=== PATIENT | male | born 1955 | race Caucasian/White ===

== ENCOUNTER 2019-05-07 02:02 | Inpatient (IN) ==
[2019-05-07] MEDS ORDERED: Naloxone 0.4 MG/ML INJ IVP PRN (05:14)
[2019-05-07 05:42] LABS: Basophils % 0.1 %; Eosinophils % 0.1 %; Hematocrit 41.5 % (37.5-50.1); Hemoglobin 13.8 g/dL (12.9-16.9); Immature Granulocytes % 0.8 % (0-4); Lymphocytes # 0.7 K/mcL (0.6-4.6); Lymphocytes % 5.3 %; Mean Corpuscular HGB Conc 33.3 g/dL (31.6-35.5); Mean Corpuscular Hemoglobin 26.4 pg (28.0-33.3); Mean Corpuscular Volume 79.5 fL (83.0-100.0); Mean Platelet Volume 9.6 fL (9.4-12.4); Monocytes # 0.1 K/mcL (0.0-1.3); Monocytes % 1.1 %; Neutrophils # 11.5 K/mcL (1.6-8.9); Platelet Count 239 K/mcL (140-400); Red Blood Count 5.22 M/mcL (4.19-5.50); Red Cell Distribution Width 14.7 % (11.5-14.5); Segmented Neutrophils % 92.6 %; White Blood Count 12.4 K/mcL (4.3-11.1)
[2019-05-07] MEDS ORDERED: *HR* Heparin 5,000 UNIT/ML VIAL SQ SCH (06:00)
[2019-05-07 06:05] LABS: BUN/Creatinine Ratio 22 (6-26); Blood Urea Nitrogen 22 mg/dL (8-23); Calcium 8.8 mg/dL (8.6-10.3); Carbon Dioxide 24 mEq/L (23-29); Chloride 101 mEq/L (98-107); Glucose 165 mg/dL (70-105); Magnesium 1.7 mg/dL (1.6-2.6); Osmolality,Calculated 291 (280-300); Phosphorous 2.6 mg/dL (2.7-4.5); Potassium 4.3 mEq/L (3.5-5.1); Sodium 137 mEq/L (136-145); eGFR For African Americans > 60 (> 60); eGFR For Non-African Americans > 60 (> 60)
[2019-05-07 06:07] LABS: Troponin I 0.54 ng/mL (< 0.04)
[2019-05-07] MEDS ORDERED: *HR* Heparin 5,000 UNIT/ML VIAL IVP ONE (06:08)
[2019-05-07] MEDS ORDERED: *HR* Heparin 5,000 UNIT/ML VIAL IVP PRN ×2 (06:08)
[2019-05-07] MEDS ORDERED: Furosemide 40 MG/4 ML VIAL IVP ONE (06:14)
[2019-05-07 06:28] LABS: ABG Base Excess 3 mEq/L (-2 to 3); ABG HCO3 27 mEq/L (21-27); ABG Oxygen Saturation 95 % (95-98); ABG PCO2 42 mmHg (35-45); ABG PH 7.43 pH Units (7.32-7.45); ABG PO2 77 mmHg (85-104); ABG TCO2 29 mEq/L (20-26); Blood Gas Modality NIV
[2019-05-07 06:41] LABS: Hematocrit 41.1 % (37.5-50.1); Hemoglobin 13.6 g/dL (12.9-16.9); Mean Corpuscular HGB Conc 33.1 g/dL (31.6-35.5); Mean Corpuscular Hemoglobin 26.9 pg (28.0-33.3); Mean Corpuscular Volume 81.4 fL (83.0-100.0); Mean Platelet Volume 9.4 fL (9.4-12.4); Platelet Count 227 K/mcL (140-400); Red Blood Count 5.05 M/mcL (4.19-5.50); Red Cell Distribution Width 14.7 % (11.5-14.5); White Blood Count 12.7 K/mcL (4.3-11.1)
[2019-05-07 06:47] LABS: Prothrombin Time 10.8 Seconds (9.4-12.1)
[2019-05-07] MEDS: amLODIPine 5 MG TABLET PO SCH (08:35)
[2019-05-07] MEDS: Heparin 25,000 UNIT/250 ML D5W 25,000 UNIT/250 ML IV.SOLN IVC SCH (08:36)
[2019-05-07] MEDS ORDERED: Aspirin 81 MG TAB.CHEW PO SCH (09:00)
[2019-05-07] MEDS ORDERED: Nitroglycerin 0.4 MG TAB.SUBL SL PRN (11:45)
[2019-05-07] MEDS: *HR* Buprenorphine HCl 8 MG TAB.SUBL SL SCH ×2 (16:16→20:37)
[2019-05-07] MEDS ORDERED: Furosemide 40 MG/4 ML VIAL ONE (18:38)
[2019-05-07] MEDS: Furosemide 40 MG/4 ML VIAL IVP SCH (18:39)
[2019-05-07] MEDS ORDERED: Aspirin Enteric Coated 81 MG Tablet PO SCH (18:45)
[2019-05-07] MEDS ORDERED: Nitroglycerin 1 INCH/GM PACKET TP ONE (20:49)
[2019-05-08] MEDS: Heparin 25,000 UNIT/250 ML D5W 25,000 UNIT/250 ML IV.SOLN IVC SCH (03:55)
[2019-05-08 04:32] LABS: Albumin 3.7 g/dL (3.5-5.7); Albumin/Globulin Ratio 1.4 (1.1-2.2); Bilirubin,Direct 0.1 mg/dL (0.0-0.2); Bilirubin,Indirect 0.4 mg/dL (0.0-1.0); Bilirubin,Total 0.5 mg/dL (0.3-1.0); Chol/HDL Ratio 3.5 (0-4.9); Globulin 2.7 g/dL (2.4-3.5); Total Protein 6.4 g/dL (6.4-8.9)
[2019-05-08] MEDS: Furosemide 40 MG/4 ML VIAL IVP SCH ×2 (08:14→20:23)
[2019-05-08] MEDS: amLODIPine 5 MG TABLET PO SCH (08:14)
[2019-05-08] MEDS: *HR* Buprenorphine HCl 8 MG TAB.SUBL SL SCH ×2 (08:14→18:23)
[2019-05-08] MEDS: Aspirin Enteric Coated 81 MG Tablet PO SCH (08:16)
[2019-05-08 09:02] LABS: Hematocrit 39.4 % (37.5-50.1); Hemoglobin 13.1 g/dL (12.9-16.9); Mean Corpuscular HGB Conc 33.2 g/dL (31.6-35.5); Mean Corpuscular Hemoglobin 26.8 pg (28.0-33.3); Mean Corpuscular Volume 80.6 fL (83.0-100.0); Mean Platelet Volume 9.5 fL (9.4-12.4); Platelet Count 245 K/mcL (140-400); Red Blood Count 4.89 M/mcL (4.19-5.50); White Blood Count 15.7 K/mcL (4.3-11.1)
[2019-05-08 09:22] LABS: BUN/Creatinine Ratio 33 (6-26); Blood Urea Nitrogen 29 mg/dL (8-23); Calcium 8.7 mg/dL (8.6-10.3); Carbon Dioxide 28 mEq/L (23-29); Chloride 98 mEq/L (98-107); Glucose 167 mg/dL (70-105); Osmolality,Calculated 290 (280-300); Potassium 3.9 mEq/L (3.5-5.1); Sodium 135 mEq/L (136-145); eGFR For African Americans > 60 (> 60); eGFR For Non-African Americans > 60 (> 60)
[2019-05-08] MEDS ORDERED: 0.9 % Sodium Chloride 1,000 ML ONE ×2 (14:48→14:51)
[2019-05-08] MEDS ORDERED: Nitroglycerin 1,000 MCG/10 ML VIAL IV ONE (14:49)
[2019-05-08] MEDS ORDERED: *HR* Heparin 10,000 UNIT/10 ML VIAL ONE (14:49)
[2019-05-08] MEDS ORDERED: Heparin 1,000 UNITS/500 mL 500 ML ONE (14:49)
[2019-05-08] MEDS ORDERED: ISOVUE-370 200 ML INFUS..BTL ONE (14:49)
[2019-05-08] MEDS ORDERED: *HR* Midazolam HCl 2 MG/2 ML VIAL ONE (15:02)
[2019-05-08] MEDS ORDERED: *HR* FentaNYL (PF) 100 MCG/2 ML VIAL ONE (15:02)
[2019-05-08] MEDS ORDERED: Verapamil 5 MG/2 ML VIAL ONE (15:11)
[2019-05-08 18:02] LABS: Basophils % 0.1 %; Hematocrit 37.6 % (37.5-50.1); Hemoglobin 12.6 g/dL (12.9-16.9); Immature Granulocytes % 0.7 % (0-4); Lymphocytes # 2.1 K/mcL (0.6-4.6); Lymphocytes % 14.5 %; Mean Corpuscular HGB Conc 33.5 g/dL (31.6-35.5); Mean Corpuscular Hemoglobin 26.6 pg (28.0-33.3); Mean Corpuscular Volume 79.5 fL (83.0-100.0); Mean Platelet Volume 9.5 fL (9.4-12.4); Monocytes # 0.7 K/mcL (0.0-1.3); Monocytes % 4.7 %; Neutrophils # 11.5 K/mcL (1.6-8.9); Platelet Count 229 K/mcL (140-400); Red Blood Count 4.73 M/mcL (4.19-5.50); Red Cell Distribution Width 15.2 % (11.5-14.5); White Blood Count 14.4 K/mcL (4.3-11.1)
[2019-05-08 18:05] LABS: INR 1.1; Prothrombin Time 12.1 Seconds (9.4-12.1)
[2019-05-08 18:22] LABS: BUN/Creatinine Ratio 30 (6-26); Blood Urea Nitrogen 26 mg/dL (8-23); Calcium 8.3 mg/dL (8.6-10.3); Carbon Dioxide 29 mEq/L (23-29); Chloride 100 mEq/L (98-107); Glucose 99 mg/dL (70-105); Osmolality,Calculated 291 (280-300); Potassium 3.5 mEq/L (3.5-5.1); Sodium 138 mEq/L (136-145); eGFR For African Americans > 60 (> 60); eGFR For Non-African Americans > 60 (> 60)
[2019-05-08 19:30] LABS: Estimated Average Glucose 137 mg/dl
[2019-05-08 20:12] LABS: Bilirubin,Urine Negative (Negative); Blood,Urine Negative (Negative); Clarity,Urine Clear (Clear); Color,Urine Yellow (Yellow); Glucose,Urine (UA) Normal (Normal); Ketones,Urine Negative (Negative); Leukocyte Esterase,Urine Negative (Negative); Nitrite,Urine Negative (Negative); PH,Urine 6.5 pH Units (5.0-8.0); Protein,Urine Negative (Neg-Trace); Specific Gravity,Urine > 1.030 (1.010-1.025); Urobilinogen,Urine Normal (Normal)
[2019-05-08] MEDS: Chlorhexidine Rinse 15 ML MOUTHWASH MM SCH (20:23)
[2019-05-08] MEDS ORDERED: *HR* LORazepam 2 MG/ML VIAL IVP ONE (20:58)
[2019-05-08] MEDS: Nitroglycerin 25 MG/250 ML INFUS..BTL IVC SCH (21:10)
[2019-05-09 04:57] LABS: Basophils % 0.1 %; Eosinophils % 0.2 %; Hematocrit 37.3 % (37.5-50.1); Hemoglobin 12.2 g/dL (12.9-16.9); Immature Granulocytes % 0.4 % (0-4); Lymphocytes # 2.1 K/mcL (0.6-4.6); Lymphocytes % 20.7 %; Mean Corpuscular HGB Conc 32.7 g/dL (31.6-35.5); Mean Corpuscular Hemoglobin 26.4 pg (28.0-33.3); Mean Corpuscular Volume 80.7 fL (83.0-100.0); Mean Platelet Volume 10.3 fL (9.4-12.4); Monocytes # 0.5 K/mcL (0.0-1.3); Monocytes % 5.1 %; Neutrophils # 7.4 K/mcL (1.6-8.9); Platelet Count 194 K/mcL (140-400); Red Blood Count 4.62 M/mcL (4.19-5.50); Red Cell Distribution Width 15.4 % (11.5-14.5); Segmented Neutrophils % 73.5 %; White Blood Count 10.1 K/mcL (4.3-11.1)
[2019-05-09 05:10] LABS: Prothrombin Time 11.7 Seconds (9.4-12.1)
[2019-05-09 05:13] LABS: Activated Partial Thrombo Time 49.5 Seconds (26.0-36.0)
[2019-05-09 05:16] LABS: BUN/Creatinine Ratio 29 (6-26); Blood Urea Nitrogen 27 mg/dL (8-23); Calcium 8.2 mg/dL (8.6-10.3); Carbon Dioxide 32 mEq/L (23-29); Chloride 99 mEq/L (98-107); Glucose 106 mg/dL (70-105); Magnesium 2.2 mg/dL (1.6-2.6); Osmolality,Calculated 292 (280-300); Phosphorous 3.4 mg/dL (2.7-4.5); Potassium 3.3 mEq/L (3.5-5.1); Sodium 138 mEq/L (136-145); eGFR For African Americans > 60 (> 60); eGFR For Non-African Americans > 60 (> 60)
[2019-05-09] MEDS ORDERED: Norepinephrine 4 MG in 0.9 % Sodium Chloride 250 ML IVC PRN (06:00)
[2019-05-09] MEDS ORDERED: Dextrose 50 % in Water (Vial) 30 ML, Sodium Bicarbonate 20 MEQ, Potassium Chloride 15 M... TH ONE (06:00)
[2019-05-09] MEDS ORDERED: Dextrose 50 % in Water (Vial) 30 ML, Sodium Bicarbonate 20 MEQ, Lidocaine 1% 5 ML, Insu... TH ONE ×3 (06:00)
[2019-05-09] MEDS ORDERED: Insulin Human Regular 100 UNIT in 0.9 % Sodium Chloride 100 ML IV PRN (06:00)
[2019-05-09] MEDS ORDERED: Heparin 15,000 UNIT in 0.9 % Sodium Chloride 500 ML IV ONE (06:00)
[2019-05-09] MEDS: Chlorhexidine Rinse 15 ML MOUTHWASH MM SCH ×2 (06:24→19:37)
[2019-05-09] MEDS ORDERED: Nitroglycerin 25 MG/250 ML INFUS..BTL IVC ONE (06:40)
[2019-05-09] MEDS ORDERED: NiCARdipine 2.5 MG/10 ML Syringe IVPB ONE (06:40)
[2019-05-09] MEDS ORDERED: *HR* Rocuronium Bromide 50 MG/5 ML VIAL ONE ×3 (06:44→11:09)
[2019-05-09] MEDS ORDERED: *HR* PHENYLEPHRINE 1,000 MCG/10 ML SYRINGE IVP ONE (06:44)
[2019-05-09] MEDS ORDERED: *HR* Midazolam HCl 5 MG/5 ML VIAL IVP ONE ×2 (06:44→11:24)
[2019-05-09] MEDS ORDERED: *HR* FentaNYL (PF) 1,000 MCG/20 ML VIAL ONE (06:44)
[2019-05-09] MEDS ORDERED: EPINEPHrine 1 MG/ML VIAL ONE (06:45)
[2019-05-09] MEDS ORDERED: Protamine Sulfate 250 MG/25 ML VIAL IVP ONE (06:45)
[2019-05-09] MEDS ORDERED: Famotidine 20 MG/2 ML VIAL ONE (06:45)
[2019-05-09] MEDS ORDERED: Calcium Gluconate 1,000 MG/10 ML VIAL ONE (06:45)
[2019-05-09] MEDS ORDERED: *HR* Etomidate 20 MG/10 ML AMPUL IVP ONE (06:45)
[2019-05-09] MEDS ORDERED: Tranexamic Acid 1,000 MG/10 ML VIAL ONE ×2 (06:45→09:50)
[2019-05-09] MEDS ORDERED: Verapamil 5 MG/2 ML VIAL ONE (06:52)
[2019-05-09] MEDS ORDERED: CeFAZolin Syr 2,000MG/20 ML 2,000 MG/20 ML SYRINGE IVPB ONE (08:00)
[2019-05-09 09:02] LABS: ABG Base Excess 1 mEq/L (-2 to 3); ABG Chloride 109 mEq/L (98-107); ABG Glucose 81 mg/dL (60-95); ABG HCO3 26 mEq/L (21-27); ABG Ionized Calcium 0.61 mmol/L (1.15-1.35); ABG Oxygen Saturation 100 % (95-98); ABG PCO2 43 mmHg (35-45); ABG PH 7.39 pH Units (7.32-7.45); ABG PO2 379 mmHg (85-104); ABG TCO2 27 mEq/L (20-26)
[2019-05-09 10:09] LABS: ABG Base Excess 3 mEq/L (-2 to 3); ABG Chloride 100 mEq/L (98-107); ABG Glucose 141 mg/dL (60-95); ABG HCO3 28 mEq/L (21-27); ABG Ionized Calcium 1.03 mmol/L (1.15-1.35); ABG Oxygen Saturation 95 % (95-98); ABG PCO2 46 mmHg (35-45); ABG PO2 79 mmHg (85-104); ABG TCO2 30 mEq/L (20-26)
[2019-05-09 10:18] LABS: ABG Base Excess 6 mEq/L (-2 to 3); ABG Chloride 97 mEq/L (98-107); ABG Glucose 245 mg/dL (60-95); ABG HCO3 30 mEq/L (21-27); ABG Ionized Calcium 0.93 mmol/L (1.15-1.35); ABG Oxygen Saturation 100 % (95-98); ABG PCO2 40 mmHg (35-45); ABG PH 7.48 pH Units (7.32-7.45); ABG PO2 420 mmHg (85-104); ABG TCO2 31 mEq/L (20-26)
[2019-05-09] MEDS ORDERED: Albumin Human 5% 50.0 GM/1,000 ML VIAL ONE (10:29)
[2019-05-09 10:56] LABS: ABG Base Excess 4 mEq/L (-2 to 3); ABG Chloride 97 mEq/L (98-107); ABG Glucose 236 mg/dL (60-95); ABG HCO3 28 mEq/L (21-27); ABG Ionized Calcium 0.95 mmol/L (1.15-1.35); ABG Oxygen Saturation 100 % (95-98); ABG PCO2 43 mmHg (35-45); ABG PH 7.43 pH Units (7.32-7.45); ABG PO2 276 mmHg (85-104); ABG TCO2 30 mEq/L (20-26)
[2019-05-09 11:21] LABS: ABG Base Excess 4 mEq/L (-2 to 3); ABG Chloride 97 mEq/L (98-107); ABG Glucose 176 mg/dL (60-95); ABG HCO3 29 mEq/L (21-27); ABG Ionized Calcium 0.98 mmol/L (1.15-1.35); ABG Oxygen Saturation 100 % (95-98); ABG PCO2 43 mmHg (35-45); ABG PH 7.44 pH Units (7.32-7.45); ABG PO2 325 mmHg (85-104); ABG TCO2 31 mEq/L (20-26)
[2019-05-09] MEDS ORDERED: *HR* FentaNYL (PF) 250 MCG/5 ML VIAL ONE (11:24)
[2019-05-09 11:33] LABS: ABG Base Excess 3 mEq/L (-2 to 3); ABG Chloride 98 mEq/L (98-107); ABG Glucose 139 mg/dL (60-95); ABG HCO3 28 mEq/L (21-27); ABG Ionized Calcium 1.32 mmol/L (1.15-1.35); ABG Oxygen Saturation 95 % (95-98); ABG PCO2 46 mmHg (35-45); ABG PH 7.39 pH Units (7.32-7.45); ABG PO2 80 mmHg (85-104); ABG TCO2 30 mEq/L (20-26)
[2019-05-09] MEDS: Aspirin Enteric Coated 81 MG Tablet PO SCH (11:55)
[2019-05-09] MEDS: amLODIPine 5 MG TABLET PO SCH (11:56)
[2019-05-09] MEDS: *HR* Buprenorphine HCl 8 MG TAB.SUBL SL SCH (11:56)
[2019-05-09] MEDS: Furosemide 40 MG/4 ML VIAL IVP SCH (11:56)
[2019-05-09] MEDS ORDERED: Insulin Regular, Human 100 UNIT/ML IV PRN (12:04)
[2019-05-09] MEDS ORDERED: *HR* Promethazine 25 MG/ML VIAL IVP PRN (12:04)
[2019-05-09] MEDS ORDERED: Potassium Chloride 40 MEQ/200 ML BAG IVPB PRN (12:04)
[2019-05-09] MEDS ORDERED: *HR* Dextrose 50 % in Water (Syg) 50 ML SYRINGE IVP PRN (12:04)
[2019-05-09] MEDS ORDERED: Ondansetron 4 MG/2 ML VIAL IVP PRN (12:04)
[2019-05-09] MEDS ORDERED: Acetaminophen 325 MG TABLET PO PRN (12:04)
[2019-05-09] MEDS ORDERED: Insulin Human Regular 100 UNIT in 0.9 % Sodium Chloride 100 ML IVC SCH (12:15)
[2019-05-09] MEDS ORDERED: Norepinephrine 4 MG in 0.9 % Sodium Chloride 250 ML IVC SCH (12:15)
[2019-05-09 12:44] LABS: ABG Base Excess 6 mEq/L (-2 to 3); ABG HCO3 31 mEq/L (21-27); ABG Oxygen Saturation 100 % (95-98); ABG PCO2 46 mmHg (35-45); ABG PH 7.44 pH Units (7.32-7.45); ABG PO2 216 mmHg (85-104); ABG TCO2 32 mEq/L (20-26); Blood Gas Modality AF; Blood Gas VT 850 cc
[2019-05-09] MEDS: 0.9 % Sodium Chloride 1,000 ML IVC SCH (12:55)
[2019-05-09 12:57] LABS: Basophils % 0.2 %; Eosinophils # 0.1 K/mcL (0.0-0.6); Eosinophils % 0.4 %; Hematocrit 33.9 % (37.5-50.1); Hemoglobin 11.7 g/dL (12.9-16.9); Immature Granulocytes % 0.9 % (0-4); Lymphocytes # 3.5 K/mcL (0.6-4.6); Lymphocytes % 19.8 %; Mean Corpuscular HGB Conc 34.5 g/dL (31.6-35.5); Mean Corpuscular Hemoglobin 27.1 pg (28.0-33.3); Mean Corpuscular Volume 78.7 fL (83.0-100.0); Mean Platelet Volume 9.5 fL (9.4-12.4); Monocytes # 1.2 K/mcL (0.0-1.3); Monocytes % 6.7 %; Neutrophils # 12.6 K/mcL (1.6-8.9); Platelet Count 184 K/mcL (140-400); Red Blood Count 4.31 M/mcL (4.19-5.50); Red Cell Distribution Width 14.8 % (11.5-14.5); White Blood Count 17.5 K/mcL (4.3-11.1)
[2019-05-09 13:02] LABS: INR 1.3
[2019-05-09 13:04] LABS: Activated Partial Thrombo Time 24.9 Seconds (26.0-36.0)
[2019-05-09 13:07] LABS: Prothrombin Time 14.3 Seconds (9.4-12.1)
[2019-05-09] MEDS: *HR* OxyCODONE/APAP 5/325 TABLET PO PRN ×2 (13:20→21:51)
[2019-05-09] MEDS: *HR* FentaNYL (PF) 100 MCG/2 ML VIAL IVP PRN ×3 (13:20→20:00)
[2019-05-09 13:27] LABS: BUN/Creatinine Ratio 26 (6-26); Blood Urea Nitrogen 22 mg/dL (8-23); Calcium 8.5 mg/dL (8.6-10.3); Carbon Dioxide 27 mEq/L (23-29); Chloride 103 mEq/L (98-107); Glucose 103 mg/dL (70-105); Magnesium 2.5 mg/dL (1.6-2.6); Osmolality,Calculated 290 (280-300); Potassium 3.6 mEq/L (3.5-5.1); Sodium 138 mEq/L (136-145); eGFR For African Americans > 60 (> 60); eGFR For Non-African Americans > 60 (> 60)
[2019-05-09] MEDS: Ketorolac 15 MG/ML VIAL IVP SCH ×2 (15:58→21:59)
[2019-05-09 16:31] LABS: ABG Base Excess 1 mEq/L (-2 to 3); ABG HCO3 27 mEq/L (21-27); ABG Oxygen Saturation 95 % (95-98); ABG PCO2 47 mmHg (35-45); ABG PH 7.37 pH Units (7.32-7.45); ABG PO2 77 mmHg (85-104); ABG TCO2 29 mEq/L (20-26); Blood Gas Modality CPAP/PS; Blood Gas Pressure Support 5 cm H2O
[2019-05-09] MEDS: niCARdipine 20 MG/200 ML MLS IVC SCH ×2 (19:31→19:32)
[2019-05-09] MEDS: Nitroglycerin 25 MG/250 ML INFUS..BTL IVC SCH ×3 (19:32→23:55)
[2019-05-09 21:09] LABS: ABG Base Excess 4 mEq/L (-2 to 3); ABG HCO3 29 mEq/L (21-27); ABG Oxygen Saturation 95 % (95-98); ABG PCO2 41 mmHg (35-45); ABG PH 7.45 pH Units (7.32-7.45); ABG PO2 73 mmHg (85-104); ABG TCO2 30 mEq/L (20-26); Blood Gas Modality NIV
[2019-05-10] MEDS: niCARdipine 20 MG/200 ML MLS IVC SCH ×2 (00:58→04:35)
[2019-05-10] MEDS: *HR* FentaNYL (PF) 100 MCG/2 ML VIAL IVP PRN (00:58)
[2019-05-10 03:25] LABS: Hematocrit 29.9 % (37.5-50.1); Immature Granulocytes % 0.7 % (0-4); Lymphocytes # 1.1 K/mcL (0.6-4.6); Lymphocytes % 11.4 %; Mean Corpuscular HGB Conc 33.8 g/dL (31.6-35.5); Mean Corpuscular Hemoglobin 26.9 pg (28.0-33.3); Mean Corpuscular Volume 79.5 fL (83.0-100.0); Mean Platelet Volume 9.9 fL (9.4-12.4); Monocytes # 0.6 K/mcL (0.0-1.3); Monocytes % 6.3 %; Neutrophils # 7.5 K/mcL (1.6-8.9); Platelet Count 159 K/mcL (140-400); Red Blood Count 3.76 M/mcL (4.19-5.50); Red Cell Distribution Width 15.5 % (11.5-14.5); Segmented Neutrophils % 81.6 %; White Blood Count 9.2 K/mcL (4.3-11.1)
[2019-05-10] MEDS: 0.9 % Sodium Chloride 1,000 ML IVC SCH (03:25)
[2019-05-10] MEDS: Ketorolac 15 MG/ML VIAL IVP SCH ×5 (03:26→21:35)
[2019-05-10] MEDS: Nitroglycerin 25 MG/250 ML INFUS..BTL IVC SCH ×2 (03:26)
[2019-05-10 03:28] LABS: Hemoglobin 10.1 g/dL (12.9-16.9)
[2019-05-10 03:44] LABS: BUN/Creatinine Ratio 26 (6-26); Blood Urea Nitrogen 27 mg/dL (8-23); Carbon Dioxide 28 mEq/L (23-29); Chloride 105 mEq/L (98-107); Glucose 145 mg/dL (70-105); Osmolality,Calculated 296 (280-300); Sodium 139 mEq/L (136-145); eGFR For African Americans > 60 (> 60); eGFR For Non-African Americans > 60 (> 60)
[2019-05-10] MEDS: *HR* OxyCODONE/APAP 5/325 TABLET PO PRN (04:22)
[2019-05-10 04:56] LABS: INR 1.2; Prothrombin Time 13.8 Seconds (9.4-12.1)
[2019-05-10] MEDS ORDERED: *HR* OxyCODONE/APAP 10/325 TABLET PO PRN (07:56)
[2019-05-10] MEDS ORDERED: *HR* HYDROmorphone 2 MG/ML SYRINGE IVP PRN ×2 (08:03→09:54)
[2019-05-10] MEDS ORDERED: Lisinopril-HCTZ 20-12.5mg TABLET PO SCH (09:00)
[2019-05-10] MEDS ORDERED: Furosemide 20 MG/2 ML VIAL IVP SCH ×2 (09:00→21:00)
[2019-05-10] MEDS ORDERED: Pantoprazole 40 MG VIAL IVP SCH (09:00)
[2019-05-10] MEDS ORDERED: amLODIPine 5 MG TABLET PO SCH (09:00)
[2019-05-10] MEDS: Aspirin Enteric Coated 81 MG Tablet PO SCH (09:04)
[2019-05-10] MEDS: Chlorhexidine Rinse 15 ML MOUTHWASH MM SCH ×2 (09:04→20:32)
[2019-05-10] MEDS ORDERED: Naloxone 0.4 MG/ML INJ IVP PRN (09:54)
[2019-05-10] MEDS ORDERED: *HR* Dextrose 50 % in Water (Syg) 50 ML SYRINGE IVP PRN (09:54)
[2019-05-10] MEDS ORDERED: Acetaminophen 325 MG TABLET PO PRN (09:54)
[2019-05-10] MEDS ORDERED: Ondansetron 4 MG/2 ML VIAL IVP PRN (09:54)
[2019-05-10] MEDS ORDERED: D5% in Water 1,000 ML IVC PRN (09:54)
[2019-05-10] MEDS ORDERED: *HR* Promethazine 25 MG/ML VIAL IVP PRN (09:54)
[2019-05-10] MEDS ORDERED: Dextrose Gel 15 GM/37.5 ML TUBE PO PRN ×2 (09:54)
[2019-05-10] MEDS ORDERED: *HR* Heparin 10,000 UNIT/10 ML VIAL IV ONE (10:46)
[2019-05-10] MEDS ORDERED: Albumin Human 25% 25 GM/100 ML IV.SOLN IV ONE (10:46)
[2019-05-10] MEDS ORDERED: *HR* Magnesium Sulfate 2 GM/50 ML PIGGYBACK IVPB ONE (10:46)
[2019-05-10] MEDS ORDERED: Mannitol 25% vial 12.5 GM/50 ML VIAL IVP ONE (10:46)
[2019-05-10] MEDS ORDERED: Lidocaine 2% Syringe 100 MG/5 ML IV ONE (10:46)
[2019-05-10] MEDS: Insulin LISPRO 300 UNITS/3 ML VIAL SQ SCH ×3 (10:58→20:33)
[2019-05-10] MEDS: *HR* OxyCODONE/APAP 10/325 TABLET PO PRN ×2 (12:36→18:29)
[2019-05-10] MEDS ORDERED: *HR* Heparin 5,000 UNIT/ML VIAL SQ SCH (18:00)
[2019-05-10] MEDS: *HR* Heparin 5,000 UNIT/ML VIAL SQ SCH (18:25)
[2019-05-11] MEDS: *HR* OxyCODONE/APAP 10/325 TABLET PO PRN ×4 (00:56→17:42)
[2019-05-11] MEDS: Ketorolac 15 MG/ML VIAL IVP SCH ×4 (04:26→21:07)
[2019-05-11 05:13] LABS: Basophils % 0.1 %; Eosinophils # 0.1 K/mcL (0.0-0.6); Eosinophils % 0.7 %; Hemoglobin 9.3 g/dL (12.9-16.9); Immature Granulocytes % 0.5 % (0-4); Lymphocytes # 1.3 K/mcL (0.6-4.6); Lymphocytes % 15.9 %; Mean Corpuscular HGB Conc 33.2 g/dL (31.6-35.5); Mean Corpuscular Volume 81.4 fL (83.0-100.0); Mean Platelet Volume 9.8 fL (9.4-12.4); Monocytes # 0.6 K/mcL (0.0-1.3); Monocytes % 6.7 %; Neutrophils # 6.4 K/mcL (1.6-8.9); Platelet Count 119 K/mcL (140-400); Red Blood Count 3.44 M/mcL (4.19-5.50); Red Cell Distribution Width 15.7 % (11.5-14.5); Segmented Neutrophils % 76.1 %; White Blood Count 8.4 K/mcL (4.3-11.1)
[2019-05-11 05:35] LABS: BUN/Creatinine Ratio 27 (6-26); Blood Urea Nitrogen 24 mg/dL (8-23); Carbon Dioxide 30 mEq/L (23-29); Chloride 100 mEq/L (98-107); Glucose 98 mg/dL (70-105); Osmolality,Calculated 284 (280-300); Potassium 3.6 mEq/L (3.5-5.1); Sodium 135 mEq/L (136-145); eGFR For African Americans > 60 (> 60); eGFR For Non-African Americans > 60 (> 60)
[2019-05-11] MEDS: *HR* Heparin 5,000 UNIT/ML VIAL SQ SCH ×2 (06:31→16:35)
[2019-05-11] MEDS: Pantoprazole 40 MG VIAL IVP SCH (08:04)
[2019-05-11] MEDS: Aspirin Enteric Coated 81 MG Tablet PO SCH (08:04)
[2019-05-11] MEDS: Lisinopril-HCTZ 20-12.5mg TABLET PO SCH (08:04)
[2019-05-11] MEDS: Chlorhexidine Rinse 15 ML MOUTHWASH MM SCH ×2 (08:05→21:06)
[2019-05-11] MEDS: Insulin LISPRO 300 UNITS/3 ML VIAL SQ SCH ×4 (08:05→20:45)
[2019-05-11] MEDS: niCARdipine 20 MG/200 ML MLS IVC SCH (08:31)
[2019-05-11] MEDS ORDERED: amLODIPine 5 MG TABLET PO SCH (09:00)
[2019-05-12 01:24] LABS: Basophils % 0.1 %; Eosinophils # 0.3 K/mcL (0.0-0.6); Eosinophils % 2.8 %; Hematocrit 26.6 % (37.5-50.1); Hemoglobin 8.8 g/dL (12.9-16.9); Immature Granulocytes % 0.6 % (0-4); Lymphocytes # 2.1 K/mcL (0.6-4.6); Lymphocytes % 21.9 %; Mean Corpuscular HGB Conc 33.1 g/dL (31.6-35.5); Mean Corpuscular Hemoglobin 26.9 pg (28.0-33.3); Mean Corpuscular Volume 81.3 fL (83.0-100.0); Mean Platelet Volume 10.4 fL (9.4-12.4); Monocytes # 0.6 K/mcL (0.0-1.3); Monocytes % 6.6 %; Neutrophils # 6.4 K/mcL (1.6-8.9); Platelet Count 166 K/mcL (140-400); Red Blood Count 3.27 M/mcL (4.19-5.50); Red Cell Distribution Width 15.7 % (11.5-14.5); White Blood Count 9.4 K/mcL (4.3-11.1)
[2019-05-12 01:46] LABS: BUN/Creatinine Ratio 29 (6-26); Blood Urea Nitrogen 28 mg/dL (8-23); Carbon Dioxide 27 mEq/L (23-29); Chloride 99 mEq/L (98-107); Glucose 89 mg/dL (70-105); Osmolality,Calculated 285 (280-300); Potassium 3.3 mEq/L (3.5-5.1); Sodium 135 mEq/L (136-145); eGFR For African Americans > 60 (> 60); eGFR For Non-African Americans > 60 (> 60)
[2019-05-12] MEDS: Ketorolac 15 MG/ML VIAL IVP SCH ×4 (04:01→21:21)
[2019-05-12] MEDS: *HR* Heparin 5,000 UNIT/ML VIAL SQ SCH ×2 (05:35→18:00)
[2019-05-12] MEDS: Pantoprazole 40 MG VIAL IVP SCH (08:11)
[2019-05-12] MEDS: Insulin LISPRO 300 UNITS/3 ML VIAL SQ SCH ×4 (08:11→21:18)
[2019-05-12] MEDS: Chlorhexidine Rinse 15 ML MOUTHWASH MM SCH ×2 (08:11→21:21)
[2019-05-12] MEDS: Lisinopril-HCTZ 20-12.5mg TABLET PO SCH (08:12)
[2019-05-12] MEDS: Aspirin Enteric Coated 81 MG Tablet PO SCH (08:12)
[2019-05-12] MEDS: *HR* OxyCODONE/APAP 10/325 TABLET PO PRN ×4 (10:25→21:21)
[2019-05-12] MEDS: amLODIPine 5 MG TABLET PO SCH (10:25)
[2019-05-13 03:24] LABS: BUN/Creatinine Ratio 24 (6-26); Blood Urea Nitrogen 24 mg/dL (8-23); Calcium 8.2 mg/dL (8.6-10.3); Carbon Dioxide 30 mEq/L (23-29); Chloride 102 mEq/L (98-107); Glucose 100 mg/dL (70-105); Osmolality,Calculated 288 (280-300); Sodium 137 mEq/L (136-145); eGFR For African Americans > 60 (> 60); eGFR For Non-African Americans > 60 (> 60)
[2019-05-13] MEDS: Ketorolac 15 MG/ML VIAL IVP SCH ×2 (04:03→10:25)
[2019-05-13] MEDS: *HR* Heparin 5,000 UNIT/ML VIAL SQ SCH (06:05)
[2019-05-13] MEDS: *HR* OxyCODONE/APAP 10/325 TABLET PO PRN (06:10)
[2019-05-13 07:41] VITALS: BP 146/72
[2019-05-13] MEDS: Insulin LISPRO 300 UNITS/3 ML VIAL SQ SCH (08:19)
[2019-05-13] MEDS: amLODIPine 5 MG TABLET PO SCH (08:21)
[2019-05-13] MEDS: Lisinopril-HCTZ 20-12.5mg TABLET PO SCH (08:21)
[2019-05-13] MEDS: Aspirin Enteric Coated 81 MG Tablet PO SCH (08:21)
[2019-05-13] MEDS: Chlorhexidine Rinse 15 ML MOUTHWASH MM SCH (08:22)
[2019-05-13] MEDS: Pantoprazole 40 MG VIAL IVP SCH (08:22)
== END 2019-05-13 11:04 | disposition home health service (06) | DRG 165 ==
LOC: 2NNU → SUATTDRO 06:11 → ICNU 05-08 16:29 → 2NNU 05-11 14:28
PROVIDERS: ADMIT Internal Medicine; ATTEND Thoracic Surgery (Cardiothoracic Vascular Surgery)